=== PATIENT | female | born 1955 | race Caucasian/White ===

== ENCOUNTER → 2024-08-25 | Outpatient (CLI) | payer MEDICARE, BC, SELFPAY ==
[2024-08-25 12:48] LABS: Collection Type, Urine Clean Catch
[2024-08-25 13:30] LABS: Basophils # (Auto) 0.1 Thou/mm3 (0.0-0.2); Basophils % (Auto) 2 % (0-2.5); Eosinophils # (Auto) 0.4 Thou/mm3 (0.0-0.5); Eosinophils % (Auto) 6 % (0-10); Hematocrit 35.4 % (36.0-46.0); Immature Granulocytes % (Auto) 0 % (0-0); Immature Granulocytes Auto 0.01 Thou/mm3 (0.00-0.00); Lymphocytes % (Auto) 35 % (10-50); Mean Corpuscular HGB Conc 31.1 g/dl (31.0-37.0); Mean Corpuscular Hemoglobin 27.8 pg (25.0-35.0); Mean Corpuscular Volume 89 fL (80-100); Monocytes # (Auto) 0.6 Thou/mm3 (0.0-0.8); Monocytes % (Auto) 11 % (0-12); Neutrophils # (Auto) 2.7 Thou/mm3 (1.8-7.7); Neutrophils % (Auto) 46 % (37-80); Nucleated Red Blood Cell % 0 /100 WBC (0); Platelet Count 189 Thou/mm3 (140-440); RDW Standard Deviation 47.4 fL (36.4-46.3); Red Blood Count 3.96 Miln/mm3 (4.00-5.20); White Blood Count 5.8 Thou/mm3 (3.6-11.0)
[2024-08-25 13:33] LABS: Bilirubin,Urine Negative (Negative); Blood,Urine Negative (Negative); Clarity,Urine Clear (Clear/Hazy); Color,Urine Lt-Yellow (Lt Yel-Yel); Glucose, Urine Negative (Negative); Hyaline Casts,Urine < 1 /hpf (0-1); Ketones,Urine Negative (Negative); Leukocyte Esterase,Urine Positive (Negative); Nitrite,Urine Negative (Negative); Protein,Urine Negative (Neg - Trace); RBC,Urine 2 /hpf (0-3); Specific Gravity,Urine 1.029 (1.001-1.035); Squamous Epithelial Cell,Urine 3 /hpf (0-5); Urobilinogen,Urine Negative mg/dL (0.0-1.0); WBC,Urine 19 /hpf (0-5)
[2024-08-25 13:44] LABS: Alanine Aminotransferase 30 U/L (10-49); Albumin, Serum 4.5 gm/dL (3.4-4.8); Alkaline Phosphatase 76 U/L (46-116); Anion Gap 8 (7-16); Aspartate Amino Transferase 27 U/L (0-34); BUN/Creatinine Ratio 14 Ratio (12-20); Bilirubin,Total 0.4 mg/dL (0.3-1.2); Blood Urea Nitrogen 14 mg/dL (9-23); Calcium 9.5 mg/dL (8.3-10.6); Calcium (Corrected) 9.5 mg/dL (8.5-10.1); Carbon Dioxide 27.5 mMol/L (20.0-31.0); Cardiac Risk Estimate 2.2 RATIO (3.7-5.6); Chloride 107 mMol/L (98-107); Cholesterol 153 mg/dL (132-200); Globulin 2.3 gm/dL (2.3-3.5); Glucose 100 mg/dL (74-106); HDL Cholesterol 71 mg/dL (40-60); LDL Cholesterol,Calculated 51 mg/dL (0-130); Osmolality,Calculated 283 (275-295); Sodium 142 mMol/L (136-145); Thyroid Stimulating Hormone 0.79 uIU/mL (0.55-4.78); Total Protein 6.8 gm/dL (5.7-8.2); Triglycerides 156 mg/dL (30-150); eGFR > 60 See Note
== END | disposition home or self-care (01) ==
PROVIDERS: PCP Internal Medicine; Referring Provider Internal Medicine; Visit Provider Internal Medicine
DX: I10 Essential (primary) hypertension (principal); E78.5 Hyperlipidemia, unspecified; E03.9 Hypothyroidism, unspecified
CPT/HCPCS: 36415; 80053; 80061; 81001; 84443; 85025

== ENCOUNTER → 2024-09-05 | Outpatient (CLI) | payer MEDICARE, BC, SELFPAY ==
--- NOTE | 2024-09-05 16:12 | XR_ITS ---
Examination: PA lateral chest 2 views Technique: Upright PA lateral chest 2 views Exam date and time: September 05, 2024 1821 hrs. Indications: Coughing beginning 2 weeks ago. Findings: Normal heart size Ectatic thoracic aorta. No pneumonia or pulmonary edema Moderate osteopenia Impression: No pneumonia or pulmonary edema
== END | disposition home or self-care (01) ==
LOC: CDIM 16:06
PROVIDERS: Referring Provider Internal Medicine; Visit Provider Internal Medicine
DX: R05.9 Cough, unspecified (principal)
CPT/HCPCS: 71046

== ENCOUNTER → 2024-11-21 | Outpatient (CLI) | payer MEDICARE, BC, SELFPAY ==
--- NOTE | 2024-11-21 10:45 | XR_ITS ---
Examination: Screening digital mammography, bilateral Computer aided detection 3-D breast Tomosynthesis, bilateral Date and time of exam: November 21, 2024 1039 hours Compared to mammograms dating to October 24, 2014 Indication: Screening Technique: Nonmagnified MLO, CC views of the breasts to been obtained, reconstructed from 3-D Tomosynthesis images. R2 computer aided detection program utilized for evaluation of suspicious masses and/or abnormal calcifications. 3-D Tomosynthesis images obtained. Findings: Scattered areas of fibroglandular density. Benign calcifications. Scar formation stable upper outer left breast No interval suspicious masses Impression: BI-RADS category II: Benign Findings. Recommend 1 year follow-up mammogram.
== END | disposition home or self-care (01) ==
LOC: CDIM 10:26
PROVIDERS: Referring Provider Internal Medicine; Visit Provider Internal Medicine
DX: Z12.31 Encounter for screening mammogram for malignant neoplasm of breast (principal); R92.323 Mammographic fibroglandular density, bilateral breasts; R92.1 Mammographic calcification found on diagnostic imaging of breast
CPT/HCPCS: 77063; 77067

== ENCOUNTER → 2024-12-08 | Outpatient (CLI) | payer MEDICARE, BC, SELFPAY ==
--- NOTE | 2024-12-08 13:20 | XR_ITS ---
Examination: Bone densitometry Date and time of exam:December 08, 2024 1352 hours INDICATIONS: Menopause age 48, calcium and vitamin D 5 years Technique: Lumbar spine and hip total bone mineralization values of an calculated. Peak reference and age match control results have been displayed. Findings: Lumbar spine total bone mineralization is0.912 gm/cm2. This is 1.2 standard deviations below peak reference. This is 0.9 standard deviations above age-matched controls. Hip total bone mineralization is 0.795 gm/cm2 This is 1.2 standard deviations below peak reference. This is 0.4 standard deviations above age-matched controls Impression: There is osteopenia based on lumbar spine measurements. There is osteopenia based on hip measurements Hip mineralization is decreased 5.5% compared with December 15, 2021
== END | disposition home or self-care (01) ==
PROVIDERS: PCP Internal Medicine; Referring Provider Internal Medicine; Visit Provider Internal Medicine
DX: M85.89 Other specified disorders of bone density and structure, multiple sites (principal)
CPT/HCPCS: 77080

== ENCOUNTER → 2025-01-05 | Outpatient (CLI) | payer MEDICARE, BC, SELFPAY ==
[2025-01-05 12:53] LABS: Collection Type, Urine Clean Catch
[2025-01-05 13:11] LABS: Basophils # (Auto) 0.1 Thou/mm3 (0.0-0.2); Basophils % (Auto) 1 % (0-2.5); Eosinophils # (Auto) 0.4 Thou/mm3 (0.0-0.5); Eosinophils % (Auto) 6 % (0-10); Hematocrit 34.9 % (36.0-46.0); Hemoglobin 11.2 g/dL (12.0-16.0); Immature Granulocytes Auto 0.02 Thou/mm3 (0.00-0.00); Lymphocytes # (Auto) 2.4 Thou/mm3 (1.0-4.8); Lymphocytes % (Auto) 38 % (10-50); Mean Corpuscular HGB Conc 32.1 g/dl (31.0-37.0); Mean Corpuscular Hemoglobin 28.4 pg (25.0-35.0); Mean Corpuscular Volume 88 fL (80-100); Monocytes # (Auto) 0.5 Thou/mm3 (0.0-0.8); Monocytes % (Auto) 8 % (0-12); Neutrophils # (Auto) 2.8 Thou/mm3 (1.8-7.7); Neutrophils % (Auto) 46 % (37-80); Nucleated Red Blood Cell # 0.00 Thou/mm3 (0.00-0.00); Nucleated Red Blood Cell % 0 /100 WBC (0); Platelet Count 204 Thou/mm3 (140-440); RDW Standard Deviation 45.9 fL (36.4-46.3); Red Blood Count 3.95 Miln/mm3 (4.00-5.20); White Blood Count 6.2 Thou/mm3 (3.6-11.0)
[2025-01-05 13:19] LABS: Bilirubin,Urine Negative (Negative); Blood,Urine Negative (Negative); Clarity,Urine Clear (Clear/Hazy); Color,Urine Yellow (Lt Yel-Yel); Glucose, Urine Negative (Negative); Hyaline Casts,Urine 1 /hpf (0-1); Ketones,Urine Negative (Negative); Leukocyte Esterase,Urine Negative (Negative); Nitrite,Urine Negative (Negative); PH,Urine 5.5 (5.0-7.0); Protein,Urine Negative (Neg - Trace); RBC,Urine 2 /hpf (0-3); Specific Gravity,Urine 1.024 (1.001-1.035); Squamous Epithelial Cell,Urine 2 /hpf (0-5); Urobilinogen,Urine Negative mg/dL (0.0-1.0); WBC,Urine 1 /hpf (0-5)
[2025-01-05 14:00] LABS: Alanine Aminotransferase 19 U/L (10-49); Albumin, Serum 4.7 gm/dL (3.4-4.8); Albumin/Globulin Ratio 2.2 (1.2-2.2); Alkaline Phosphatase 51 U/L (46-116); Anion Gap 10 (7-16); Aspartate Amino Transferase 15 U/L (0-34); BUN/Creatinine Ratio 9 Ratio (12-20); Bilirubin,Total 0.3 mg/dL (0.3-1.2); Blood Urea Nitrogen 12 mg/dL (9-23); Calcium 10.0 mg/dL (8.3-10.6); Calcium (Corrected) 10.0 mg/dL (8.5-10.1); Carbon Dioxide 26.4 mMol/L (20.0-31.0); Chloride 102 mMol/L (98-107); Creatinine (Component) 1.3 mg/dL (0.6-1.3); Globulin 2.1 gm/dL (2.3-3.5); Glucose 93 mg/dL (74-106); Osmolality,Calculated 275 (275-295); Potassium 4.9 mMol/L (3.4-5.1); Sodium 138 mMol/L (136-145); Thyroid Stimulating Hormone 1.41 uIU/mL (0.55-4.78); Total Protein 6.8 gm/dL (5.7-8.2); eGFR 44 See Note
[2025-01-05 14:15] LABS: Cardiac Risk Estimate 1.9 RATIO (3.7-5.6); Cholesterol 143 mg/dL (132-200); HDL Cholesterol 75 mg/dL (40-60); LDL Cholesterol,Calculated 35 mg/dL (0-130); Triglycerides 167 mg/dL (30-150)
== END | disposition home or self-care (01) ==
LOC: COPL 11:51
PROVIDERS: PCP Internal Medicine; Referring Provider Internal Medicine; Visit Provider Internal Medicine
DX: E03.9 Hypothyroidism, unspecified (principal); E78.5 Hyperlipidemia, unspecified; I10 Essential (primary) hypertension
CPT/HCPCS: 36415; 80053; 80061; 81001; 84443; 85025

== ENCOUNTER → 2025-05-03 | Outpatient (CLI) | payer MEDICARE, BC, SELFPAY ==
[2025-05-03 11:48] LABS: Albumin, Serum 4.1 gm/dL (3.4-4.8); Anion Gap 8 (7-16); BUN/Creatinine Ratio 15 Ratio (12-20); Blood Urea Nitrogen 9 mg/dL (9-23); Calcium 9.2 mg/dL (8.3-10.6); Calcium (Corrected) 9.2 mg/dL (8.5-10.1); Carbon Dioxide 29.2 mMol/L (20.0-31.0); Chloride 106 mMol/L (98-107); Creatinine (Component) 0.6 mg/dL (0.6-1.3); Glucose 106 mg/dL (74-106); Osmolality,Calculated 283 (275-295); Phosphorous 2.8 mg/dL (2.4-5.1); Potassium 3.8 mMol/L (3.4-5.1); Sodium 143 mMol/L (136-145); eGFR > 60 See Note
== END | disposition home or self-care (01) ==
PROVIDERS: PCP Internal Medicine; Referring Provider Internal Medicine; Visit Provider Internal Medicine
DX: N17.9 Acute kidney failure, unspecified (principal)
CPT/HCPCS: 36415; 80069

== ENCOUNTER 2025-05-07 14:06 | Inpatient (IN) | payer MEDICARE, BC, SELFPAY ==
[2025-05-07] VITALS (8 sets, daily range): BP systolic 138–160; BP diastolic 86–98; PULSE 87–124; RESP 20–28; TEMP 36.6–38.8; O2SAT 92–98; BMI 31.9
--- NOTE | 2025-05-07 14:46 | EKG_ITS ---
[facility] Test Date: 2025-05-07 Pat Name: LEONA HOLT Department: Room: - Gender: Female [employer]: : 1955 Requested By: Clive Britt Order Number: [id number] Reading MD: Clive Britt Measurements Intervals [place] Rate: 122 P: 108 FL: 185 QRS: -34 QRSD: 98 T: 7 QT: 402 QTc: 574 Interpretive Statements SINUS TACHYCARDIA LEFT AXIS DEVIATION [QRS AXIS < -30] POSSIBLE ANTERIOR MYOCARDIAL INFARCTION , OF INDETERMINATE AGE [30 ms Q WAVE IN V3/V4, OR R < 0.2 mV IN V4] Compared to ECG 03/24/2023 09:07:57 Left-axis deviation now present Myocardial infarct finding now present Atrial fibrillation no longer present T-wave abnormality no longer present /store/S0/[id number].pdf
--- NOTE | 2025-05-07 14:51 | EDNOTE_ITS ---
ED General RME/HPI General Chief complaint: Flu Like Symptoms Stated complaint: COUGH, SOB, SORE THROAT X 12 DAYS Time Seen by Provider: 05/07/25 14:40 Arrival date/time: 05/07/25 14:06 CC: Cough and shortness of breath HPI ongoing for the past 10 days with progressive increase in severity. Denies being short of breath when sitting or resting, but when ambulating immediately experiences shortness of breath. Patient was not aware that she has febrile. No OTC medicines taken. Related Data Home Medications ?Medication ?Instructions ?Recorded ?Confirmed benazepril 40 mg tablet (Lotensin) 40 mg PO QDAY #0 ta bs 02/17/17 03/21/23 doxazosin 1 mg tablet (Cardura) 1 mg PO HS ##0 7 03/21/23 dronedarone 400 mg tablet (Multaq) 400 mg PO BID ##0 1 05/20/22 bupropion HCl 150 mg 24 hr tablet, 150 mg PO QDAY 06/0605/20/22 extended release duloxetine 60 mg capsule,delayed 60 mg PO QDAY 1 05/20/22 release propranolol 20 mg tablet 20 mg PO QDAY 06/17/2003/21 simvastatin 20 mg tablet 20 mg PO HS 06/17/20 3 clonidine HCl 0.1 mg tablet 0.1 mg PO HS 07/09/2010/06 dupilumab 300 mg/2 mL subcutaneous 300 mg subcut Q14D 12/20/20 05/21/22 pen injector (Dupixent) levothyroxine 25 mcg tablet 25 mcg PO QDAY 12/20/20 pantoprazole 40 mg tablet,delayed 40 mg PO QDAY 05/20/22 release methocarbamol 750 mg tablet 750 mg PO TID 05/21/2210/06 hydroxyzine HCl 50 mg tablet 50 mg PO HS 03/21/2310/06 Previous Rx's ?Medication ?Instructions ?Recorded benzonatate 100 mg capsule 100 mg PO TID PRN cough #30 caps 04/09/22 furosemide 20 mg tablet 20 mg PO Q OTHER DAY #30 tab s 05/25/22 gabapentin 600 mg tablet 300 mg (1/2 x 600 mg) PO BID #7 03/22/23 tabs Allergies Allergy/AdvReac Type Severity Reaction Status Date / Time fentanyl Allergy Severe Hallucinati Verified 05/07/25 14:11 ng haloperidol (From Haldol) Allergy Severe Hallucinati Verified 05/07/25 14:11 ng ibuprofen Allergy Severe Nose Bleed Verified 05/07/25 14:11 midazolam Allergy Severe Hallucinati Verified 05/07/25 14:11 ng Penicillins Allergy Severe Hives Verified 05/07/25 14:11 Review of Systems Review of Systems Narrative Review of Systems: GEN: No fever, no chills, no weight loss EYES: No discharge, no visual changes, no pain HEENT: No ear pain, no congestion, no sore throat PULM: + shortness of breath, + cough, no congestion CV: No chest pain, no dyspnea on exertion, no palpitations GI: No nausea, no vomiting, no diarrhea, no pain, no constipation : No frequency, no urgency, no dysuria MUSC/SKEL: No joint pain, no back pain SKIN: No rash PSYCH: No hallucinations, no depression HEME/LYMPH: No easy bleeding or bruising tendencies NEURO: No weakness, no headache Past Medical History Past Medical History NEUROLOGIC: Positive Neurological Disorders and Migraine; Negative Seizures CARDIAC: Positive Cardiac Disorders, Cardiac Arrhythmia, Atrial Fibrillation, Hypercholesterolemia, Edema and Hypertension; Negative Congestive Heart Failure RESPIRATORY: Negative Chronic Obstructive Pulmonary Disease (COPD) or Asthma GASTROINTESTINAL: Positive Gastrointestinal Disorders and Gastroesophageal Reflux Disease GENITOURINARY: Negative Renal Disease MUSCULOSKELETAL: Positive Musculoskeletal Disorders, Arthritis and Osteoporosis ENDOCRINE: Positive Endocrine Disorders and Hypothyroidism; Negative Diabetes Mellitus Type 1 or Diabetes Mellitus Type 2 HEMATOLOGIC: Positive Anemia; Negative Sickle Cell Disease PSYCHO/SOCIAL: Positive Psychiatric Problems, Bipolar Disorder, Depression and Post Traumatic Stress Disorder OTHER HISTORY: Positive Hospitalization, Falls, Blood Transfusions and Clostridium Difficile; Negative Blood Transfusion Reaction or Anesthesia Reactions Family History FAMILY HISTORY: Positive Family Cardiac Disorders and Family Cancer Surgical History SURGICAL: Positive Lumpectomy Social History SMOKING STATUS: Never smoker SUBSTANCE USE: does not use ED Exam Narrative Physical exam: [General: Obese in mild discomfort but not in any acute distress Head normocephalic HEENT: Within acceptable limits Neck is supple nontender Chest equal chest rise nontender to palpation Respiratory: Right basilar and expiratory crackles. Otherwise clear to auscultation. CV: Rate rhythm is regular no murmurs rubs or clicks Abdomen is grossly distended secondary to body habitus soft nontender no masses positive bowel sounds all 4 quadrants Back: No CVA tenderness no spinous process tenderness from cervical spine thoracic and lumbar spine Skin: Intact no petechiae rash induration ulceration or crepitus Extremities: Moving all extremity against resistance cap refill less than 2 seconds neurosensory intact Neuro: Awake alert oriented x3 Glascow coma 15 no focal deficits] Course Course Course Narrative: All the laboratory results are unremarkable, the patient's COVID influenza are negative no leukocytosis no significant electrolyte imbalances no renal impairment. TSH free T4 unremarkable. Patient continues to be tachycardic with heart rates as high as 06[birth year]06/1929 after ambulating. Will give the patient additional liter of fluid and see if this mediates the tachycardia. Laboratory results show no acute leukocytosis no acute sepsis, but CTA does show the patient has a left base pneumonia and early UTI. Because of the patient's persistent tachycardia and exertional dyspnea I am feel more comfortable admitting the patient. Discussed the patient with Dr. Oleary was in agreement with this plan. Patient is in agreement with this plan. Quality Measures none Orders Category Date Time Status Admit to Inpatient Status Routine Admission 05/07/25 22:28 Active Bedside COVID-19 Antigen Test NOW Care 05/07/25 14:43 Active Bedside COVID-19 Antigen Test NOW Care 05/07/25 14:50 Active Bedside Influenza A&B Antigen Test NOW Care 05/07/25 14:43 Completed Bedside Influenza A&B Antigen Test NOW Care 05/07/25 14:[address] Screening NOW Care 05/07/25 18:15 Active Telephone Lineworker STAT Care 05/07/25 14:46 Active Continuous Pulse Oximetry STAT Care 05/07/25 14:46 Completed EKG (ED ONLY) *Do not use* NOW Care 05/07/25 14:46 Completed Insert IV NOW Care 05/07/25 14:46 Active NPO STAT Care 05/07/25 14:46 Active Strict Intake and Output Routine Care 05/07/25 14:[address] angio chest Stat Exams 05/07/25 18:15 Completed EKG (ED Only) Stat Exams 05/07/25 14:46 Draft B-Type Natriuretic Peptide Stat Lab 05/07/25 15:37 Completed Blood Culture (Lab) Stat Lab 05/07/25 15:11 Received CBC AM DRAW Lab 05/08/25 05:00 Ordered CBC AM DRAW Lab 05/09/25 05:00 Ordered CBC AM DRAW Lab 05/10/25 05:00 Ordered CBC Stat Lab 05/07/25 15:37 Completed Comprehensive Metabolic Panel Stat Lab 05/07/25 15:11 Completed D-Dimer Stat Lab 05/07/25 15:37 Completed Free T4 (Free Thyroxine) Stat Lab 05/07/25 15:11 Completed LDH (Lactate Dehydrogenase) Stat Lab 05/07/25 15:11 Completed Lactate (Lactic Acid) Stat Lab 05/07/25 14:46 Completed Lipase Stat Lab 05/07/25 15:11 Completed Magnesium AM DRAW Lab 05/08/25 05:00 Ordered Magnesium AM DRAW Lab 05/09/25 05:00 Ordered Magnesium AM DRAW Lab 05/10/25 05:00 Ordered Magnesium Stat Lab 05/07/25 15:11 Completed Partial Thromboplastin Time Stat Lab 05/07/25 15:11 Completed Phosphorous Stat Lab 05/07/25 15:11 Completed Procalcitonin Stat Lab 05/07/25 15:11 Completed Prothrombin Time with INR Stat Lab 05/07/25 15:11 Completed Renal Function Panel AM DRAW Lab 05/08/25 05:00 Ordered Renal Function Panel AM DRAW Lab 05/09/25 05:00 Ordered Renal Function Panel AM DRAW Lab 05/10/25 05:00 Ordered Thyroid Stimulating Hormone AM DRAW Lab 05/08/25 05:00 Ordered Thyroid Stimulating Hormone Stat Lab 05/07/25 15:11 Completed Troponin I Stat Lab 05/07/25 15:11 Completed Troponin I Stat Lab 05/07/25 19:35 Completed Urinalysis, C/S if Indicated Stat Lab 05/07/25 16:31 Completed Urine Culture Stat Lab 05/07/25 16:31 Received Acetaminophen Ivpb [Ofirmev Inj] Med 05/07/25 14:51 Discontinued 1,000 mg in 100 ml IV NOW Acetaminophen Ivpb [Ofirmev Inj] Med 05/07/25 21:01 Discontinued 1,000 mg in 100 ml IV NOW Benzonatate [Tessalon] Med 05/07/25 22:29 Active 100 mg PO TID PRN COU cough BuPROPion HCL XL [Wellbutrin XL] Med 05/08/25 09:00 Active 150 mg PO QDAY DULoxetine HCL [Cymbalta] Med 05/08/25 09:00 Active 60 mg PO QDAY Doxazosin Mesylate [Cardura] Med 05/08/25 21:00 Active 1 mg PO HS Gabapentin [Neurontin] Med 05/08/25 09:00 Active 300 mg PO BID Levothyroxine Sodium [Synthroid] Med 05/08/25 06:00 Active 25 mcg PO ACBR Magnesium Sulfate 2 GM Ivpb [Magnesium Sulfate Ivpb] Med 05/07/25 22:33 Ordered 2 gm in 50 ml IV X1 Morphine* Inj Med 05/07/25 18:25 Discontinued 4 mg IVP X1 ONE Naph,Kph Mbdb [Neutra-Phos Pkt] Med 05/07/25 22:33 Once 1 packet PO X1 ONE Pantoprazole [Protonix] Med 05/08/25 09:00 Active 40 mg PO QDAY Propranolol HCl [Inderal] Med 05/08/25 09:00 Active 20 mg PO QDAY Ringers Lactated 1000 ml [Lactated Ringers] 1,000 ml Med 05/07/25 14:51 Discontinued IV 999 mls/hr Ringers Lactated 1000 ml [Lactated Ringers] 1,000 ml Med 05/07/25 17:27 Discontinued IV 999 mls/hr Sodium Chloride 0.9% 1000 ml [Ns] 1,000 ml Med 05/07/25 21:00 Active IV 85 mls/hr benazepril [Lotensin] Med 05/08/25 09:00 Ordered 40 mg PO QDAY cefTRIAXone/D5w 1gm IV premix [Rocephin/D5w 1gm IV Med 05/08/25 09:00 Ordered premix] 1 gm in 50 ml IV DAILY cefTRIAXone/D5w 1gm IV premix [Rocephin/D5w 1gm IV Med 05/07/25 20:30 Discontinued premix] 1 gm in 50 ml IV X1 cloNIDine HCL [Catapres] Med 05/08/25 21:00 Active 0.1 mg PO HS dronedarone [Multaq] Med 05/07/25 22:45 Ordered 400 mg PO BID Code Status Routine Oth 05/07/25 22:28 Ordered Oxygen Delivery NOW RT 05/07/25 14:46 Active Vital Signs Vital signs: Vital Signs Temperature 101.4 F H 05/07/25 14:44 Pulse Rate 124 H 05/07/25 14:44 Respiratory Rate 20 05/07/25 14:44 Blood Pressure 159/97 H 05/07/25 14:44 Pulse Oximetry (%) 92 L 05/07/25 14:44 Oxygen Delivery Method Room Air 05/07/25 14:44 Discharge Plan Plan Patient Disposition: Other Care w/in Hosp (SDC/OBNI) Patient condition on transfer: Stable Prescriptions/Referrals Prescriptions/Med Rec: No Action Multaq 400 MG tablet 400 mg PO BID Qty: 0 benazepril [Lotensin] 40 MG tablet 40 mg PO QDAY Qty: 0 doxazosin [Cardura] 1 MG tablet 1 mg PO HS Qty: 0 clonidine HCl 0.1 mg tablet 0.1 mg PO HS levothyroxine 25 mcg tablet 25 mcg PO QDAY pantoprazole 40 mg Tablet,Delayed Release (Dr/Ec) 40 mg PO QDAY Dupixent Pen 300 mg/2 mL pen injector 300 mg SUBCUT Q14D simvastatin 20 mg Tablet 20 mg PO HS propranolol 20 mg Tablet 20 mg PO QDAY bupropion HCl 150 mg Tablet Extended Release 24 Hr 150 mg PO QDAY duloxetine 60 mg Capsule,Delayed Release(Dr/Ec) 60 mg PO QDAY benzonatate 100 mg capsule 100 mg PO TID PRN (Reason: cough) Qty: 30 0RF methocarbamol 750 mg Tablet 750 mg PO TID furosemide 20 mg tablet 20 mg PO Q OTHER DAY Qty: 30 0RF hydroxyzine HCl 50 mg tablet 50 mg PO HS gabapentin 600 mg Tablet 300 mg PO BID Qty: 7 0RF Referrals: No Primary/Family,Physician [Referring Provider] - In 1 week Problem List Clinical Impression: Pneumonia, UTI (urinary tract infection), Tachycardia Patient/Caregiver Discharge Instructions Print Language: Sami Stand Alone Forms: Lina Award Info., Patient Portal Info Letter PA/FELLING BUCKING SUPERVISOR Supervising Physician PA/FELLING BUCKING SUPERVISOR Supervising Physician: Clive Pacheco ENP [facility] Clinical Information Provided by: patient Medical Records reviewed [facility] Meds/Rx considered, not ordered None Labs/Rad/Tests considered, not ordered None Chronic Illness/Social Conditions Explain: History of A-fib hypertension GERD hypothyroidism anemia bipolar disorder and PTSD. Labs Labs: interpreted by mo Lab(s) Interpretation(s): CBC shows no leukocytosis H&H of 11.0 and 33.7 respectively. Platelets at 144. Coags within acceptable limits CMP shows no significant electrolyte imbalances renal impairment transaminitis or T. bili elevation Lactic is 1.1 LDH at 254 Troponin is unremarkable BNP is 193 Lipase is 30. Pro-Riley is 0.23. Imaging Imaging interpretation: interpreted by me Imaging Interpretation(s): Chest x-ray performed outpatient 40 minutes ago was negative for any acute finding. Medication Administration(s) Medication Administration History Benzonatate (Benzonatate 100 Mg Capsule) 100 mg PO TID PRN; Protocol PRN Reason: COUGH Stop: 06/06/25 22:28 Bupropion HCl (Bupropion Hcl Xl 150 Mg Tabcr) 150 mg PO QDAY VAISHALI Stop: 06/07/25 08:59 Clonidine (Clonidine Hcl 0.1 Mg Tablet) 0.1 mg PO HS VAISHALI Stop: 06/07/25 20:59 Doxazosin Mesylate (Doxazosin Mesylate 1 Mg Tablet) 1 mg PO HS VAISHALI Stop: 06/07/25 20:59 Duloxetine HCl (Duloxetine Hcl 30 Mg Capsule) 60 mg PO QDAY VAISHALI Stop: 06/07/25 08:59 Gabapentin (Gabapentin 300 Mg Capsule) 300 mg PO BID VAISHALI Stop: 06/07/25 08:59 Sodium Chloride (Ns) 1,000 mls @ 85 mls/hr IV .[id number] VAISHALI Stop: 06/06/25 20:59 Last Admin: 05/07/25 21:50 Dose: 85 mls/hr Documented By: EB Magnesium Sulfate (Magnesium Sulfate Ivpb) 2 gm in 50 mls @ 25 mls/hr IV X1 ONE Stop: 05/08/25 00:32 Ceftriaxone Sodium/Dextrose (Rocephin/D5w 1gm Iv Premix) 1 gm in 50 mls @ 100 mls/hr IV DAILY VAISHALI Stop: 05/15/25 08:59 Levothyroxine Sodium (Levothyroxine Sodium 25 Mcg Tablet) 25 mcg PO ACBR VAISHALI Stop: 06/07/25 05:59 Non-Formulary Medication (Benazepril [Lotensin]) 40 mg PO QDAY VAISHALI Stop: 06/07/25 08:59 Non-Formulary Medication (Dronedarone [Multaq]) 400 mg PO BID VAISHALI Stop: 06/06/25 22:44 Pantoprazole Sodium (Pantoprazole 40 Mg Tablet) 40 mg PO QDAY VAISHALI Stop: 06/07/25 08:59 Potassium Phos/Sodium Phos (Naph,[facility] Mbdb 1 Packet (1.5 Gm)) 1 packet PO X1 ONE Stop: 05/07/25 22:34 Propranolol HCl (Propranolol 10 Mg Tablet) 20 mg PO QDAY [facility] Stop: 06/07/25 08:59 Discontinued Medications Acetaminophen (Ofirmev Inj) 1,000 mg in 100 mls @ 250 mls/hr IV NOW ONE Stop: 05/07/25 15:14 Last Infusion: 05/07/25 16:17 Dose: Infused Documented By: Admin: 05/07/25 15:53 Dose: 250 mls/hr Documented By: DO Lactated Ringer's (Lactated Ringers) 1,000 mls @ 999 mls/hr IV .Q1H1M ONE Stop: 05/07/25 15:51 Last Infusion: 05/07/25 16:52 Dose: Infused Documented By: Admin: 05/07/25 15:51 Dose: 999 mls/hr Documented By: DO Lactated Ringer's (Lactated Ringers) 1,000 mls @ 999 mls/hr IV .Q1H1M ONE Stop: 05/07/25 18:27 Last Infusion: 05/07/25 18:45 Dose: Infused Documented By: Admin: 05/07/25 17:45 Dose: 999 mls/hr Documented By: VG Ceftriaxone Sodium/Dextrose (Rocephin/D5w 1gm Iv Premix) 1 gm in 50 mls @ 100 mls/hr IV X1 ONE; Protocol Stop: 05/07/25 20:59 Last Infusion: 05/07/25 21:42 Dose: Infused Documented By: Admin: 05/07/25 20:40 Dose: 100 mls/hr Documented By: EB Acetaminophen (Ofirmev Inj) 1,000 mg in 100 mls @ 250 mls/hr IV NOW ONE Stop: 05/07/25 21:24 Last Infusion: 05/07/25 22:33 Dose: Infused Documented By: Admin: 05/07/25 21:51 Dose: 250 mls/hr Documented By: EB Morphine Sulfate (Morphine Sulf Inj 4 Mg/Ml Vial) 4 mg IVP X1 ONE Stop: 05/07/25 18:26 Last Admin: 05/07/25 18:42 Dose: 4 mg Documented By: DO
[2025-05-07 15:22] LABS: Lactate (Lactic Acid) 1.1 mMol/L (0.4-2.0)
[2025-05-07 15:43] LABS: INR 1.1 (0.9-1.3); Partial Thromboplastin Time 23.0 Seconds (22.0-36.0); Prothrombin Time 11.9 Seconds (9.0-12.2)
[2025-05-07] MEDS: RINGERS LACTATED 1000 ML 1,000 ML 999 ML IV ×2 (15:51→17:45)
[2025-05-07 15:53] LABS: Alanine Aminotransferase 31 U/L (10-49); Albumin, Serum 4.8 gm/dL (3.4-4.8); Albumin/Globulin Ratio 2.3 (1.2-2.2); Alkaline Phosphatase 64 U/L (46-116); Anion Gap 10 (7-16); Aspartate Amino Transferase 31 U/L (0-34); BUN/Creatinine Ratio 10 Ratio (12-20); Bilirubin,Total 0.5 mg/dL (0.3-1.2); Blood Urea Nitrogen 8 mg/dL (9-23); Calcium 9.0 mg/dL (8.3-10.6); Calcium (Corrected) 9.0 mg/dL (8.5-10.1); Carbon Dioxide 22.7 mMol/L (20.0-31.0); Chloride 103 mMol/L (98-107); Creatinine (Component) 0.8 mg/dL (0.6-1.3); Estimated Creatinine Clearance 70.3 mL/min (>60); Globulin 2.1 gm/dL (2.3-3.5); Glucose 106 mg/dL (74-106); LDH (Lactate Dehydrogenase) 254 U/L (120-246); Lipase 30 U/L (12-53); Magnesium 1.6 mg/dL (1.6-2.6); Osmolality,Calculated 270 (275-295); Phosphorous 2.2 mg/dL (2.4-5.1); Potassium 4.4 mMol/L (3.4-5.1); Procalcitonin 0.23 ng/ml (0.0-0.49); Sodium 136 mMol/L (136-145); Total Protein 6.9 gm/dL (5.7-8.2); Troponin I < 0.002 ng/mL (0.0-0.045); eGFR > 60 See Note
[2025-05-07] MEDS: ACETAMINOPHEN IVPB 1,000 MG/100 ML VIAL 250 MG IV ×2 (15:53→21:51)
[2025-05-07 15:57] LABS: Basophils # (Auto) 0.0 Thou/mm3 (0.0-0.2); Basophils % (Auto) 0 % (0-2.5); Eosinophils # (Auto) 0.1 Thou/mm3 (0.0-0.5); Eosinophils % (Auto) 1 % (0-10); Hematocrit 33.7 % (36.0-46.0); Hemoglobin 11.0 g/dL (12.0-16.0); Immature Granulocytes Auto 0.03 Thou/mm3 (0.00-0.00); Lymphocytes # (Auto) 0.8 Thou/mm3 (1.0-4.8); Lymphocytes % (Auto) 10 % (10-50); Mean Corpuscular HGB Conc 32.6 g/dl (31.0-37.0); Mean Corpuscular Hemoglobin 28.4 pg (25.0-35.0); Mean Corpuscular Volume 87 fL (80-100); Monocytes # (Auto) 0.5 Thou/mm3 (0.0-0.8); Monocytes % (Auto) 6 % (0-12); Neutrophils # (Auto) 6.9 Thou/mm3 (1.8-7.7); Neutrophils % (Auto) 83 % (37-80); Nucleated Red Blood Cell # 0.00 Thou/mm3 (0.00-0.00); Nucleated Red Blood Cell % 0 /100 WBC (0); Platelet Count 144 Thou/mm3 (140-440); RDW Standard Deviation 47.6 fL (36.4-46.3); Red Blood Count 3.88 Miln/mm3 (4.00-5.20); White Blood Count 8.3 Thou/mm3 (3.6-11.0)
[2025-05-07 16:16] LABS: B-Type Natriuretic Peptide 193 pg/mL (0-100)
[2025-05-07 16:56] LABS: Collection Type, Urine Clean Catch
[2025-05-07 17:10] LABS: Bilirubin,Urine Negative (Negative); Blood,Urine Trace (Negative); Color,Urine Yellow (Lt Yel-Yel); Glucose, Urine Negative (Negative); Ketones,Urine 1+ (Negative); Leukocyte Esterase,Urine Positive (Negative); Nitrite,Urine Positive (Negative); PH,Urine 6.0 (5.0-7.0); Protein,Urine Negative (Neg - Trace); RBC,Urine 3 /hpf (0-3); Specific Gravity,Urine 1.019 (1.001-1.035); Squamous Epithelial Cell,Urine 1 /hpf (0-5); Urobilinogen,Urine Negative mg/dL (0.0-1.0); WBC,Urine 117 /hpf (0-5)
[2025-05-07 17:14] LABS: Clarity,Urine Hazy (Clear/Hazy); Culture Indicated,Urine Yes
[2025-05-07 17:19] LABS: Free T4 (Free Thyroxine) 1.60 ng/dL (0.89-1.76); Thyroid Stimulating Hormone 0.14 uIU/mL (0.55-4.78)
--- NOTE | 2025-05-07 18:15 | XR_ITS ---
Examination: CTA chest with intravenous contrast 2-D reconstructions 3-D reconstructions, vascular Date and time of exam: May 07, 2025, 1925 hours INDICATIONS: Chest pain shortness of breath today CTDI: vol (mGy) 14.8 DLP: (mGycm) 461 Technique: Multiple axial sections of the thorax have been obtained. 3 mm slice thickness, from below the hemidiaphragms to above the apices of the lungs. Mediastinal and lung density settings have been obtained. 2-D sagittal and coronal reconstructions. 3-D angiographic renderings, 3-D volume renderings, 3D post processing, vascular maximum intensity projections obtained. Contrast administered is 100 cc Isovue-370. Low dose protocols were performed. One or more of the following dose reduction techniques were used; automated exposure control, adjustment of the mA and/or KV according to patient size, use of iterative reconstruction technique. Findings: No thoracic aortic aneurysm dilatation or dissection No pulmonary artery emboli Mild vascular congestion Mild enlargement cardiac contour Pneumonia left base No visualized liver or splenic lesion Axial image 163 suspicious for tiny gallstones Common bile duct enlarged, 11 mm No hydronephrosis Abdominal aorta intact Moderate osteopenia IMPRESSION: Negative for pulmonary artery emboli Left base pneumonia Recommend hepatobiliary sonography to confirm small gallstones
[2025-05-07] MEDS: MORPHINE SULF INJ 4 MG/ML VIAL IVP (18:42)
[2025-05-07 18:52] LABS: D-Dimer < 250 ng/mL (<600)
--- NOTE | 2025-05-07 19:18 | PC.NURSE ---
KANDI from Evelyn RN, Pt in CT at this time Spouse waiting in room
[2025-05-07 20:11] LABS: Troponin I < 0.020 ng/mL (0.0-0.045)
--- NOTE | 2025-05-07 20:29 | PC.NURSE ---
requested Pt to provide urine Pt re[ported he is trying to go and cannot. when assessed Pt was distended and tender made aware will start kahn cath
[2025-05-07] MEDS: cefTRIAXone/D5w 1gm IV premix 1 GM/50 ML BAG IV (20:40)
[2025-05-07] MEDS: SODIUM CHLORIDE 0.9% 1000 ML 1,000 ML 85 ML IV (21:50)
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
[2025-05-07] MEDS: Magnesium Sulfate 2 GM Ivpb 2 GM/50 ML BAG IV (22:54)
--- NOTE | 2025-05-07 23:56 | PC.NURSE ---
Pt has platelet level of 61 per protocol hold heparin if platelet <100 platelet
[2025-05-08] VITALS (13 sets, daily range): BP systolic 139–157; BP diastolic 80–99; PULSE 56–94; RESP 18–28; TEMP 36–37.1; O2SAT 91–99; BMI 31.4
--- NOTE | 2025-05-08 00:10 | PC.NURSE ---
SBAR to Colette RN Pt going to floor with RN
[2025-05-08] MEDS: NAPH,KPH MBDB 1 PACKET (1.5 GM) PO (00:56)
--- NOTE | 2025-05-08 01:38 | PC.NURSE ---
accessed patient's chart for main nurse.
[2025-05-08 06:22] LABS: Basophils # (Auto) 0.0 Thou/mm3 (0.0-0.2); Basophils % (Auto) 1 % (0-2.5); Eosinophils # (Auto) 0.0 Thou/mm3 (0.0-0.5); Eosinophils % (Auto) 0 % (0-10); Hematocrit 32.5 % (36.0-46.0); Hemoglobin 10.8 g/dL (12.0-16.0); Immature Granulocytes Auto 0.02 Thou/mm3 (0.00-0.00); Lymphocytes # (Auto) 0.9 Thou/mm3 (1.0-4.8); Lymphocytes % (Auto) 12 % (10-50); Mean Corpuscular HGB Conc 33.2 g/dl (31.0-37.0); Mean Corpuscular Hemoglobin 29.0 pg (25.0-35.0); Mean Corpuscular Volume 87 fL (80-100); Monocytes # (Auto) 0.4 Thou/mm3 (0.0-0.8); Monocytes % (Auto) 5 % (0-12); Neutrophils # (Auto) 6.6 Thou/mm3 (1.8-7.7); Neutrophils % (Auto) 83 % (37-80); Nucleated Red Blood Cell # 0.00 Thou/mm3 (0.00-0.00); Nucleated Red Blood Cell % 0 /100 WBC (0); Platelet Count 131 Thou/mm3 (140-440); RDW Standard Deviation 48.2 fL (36.4-46.3); Red Blood Count 3.73 Miln/mm3 (4.00-5.20); White Blood Count 8.0 Thou/mm3 (3.6-11.0)
[2025-05-08] MEDS: LEVOTHYROXINE SODIUM 25 MCG TABLET PO (06:30)
[2025-05-08 06:43] LABS: Albumin, Serum 4.1 gm/dL (3.4-4.8); Anion Gap 12 (7-16); BUN/Creatinine Ratio 8 Ratio (12-20); Blood Urea Nitrogen < 5 mg/dL (9-23); Calcium 8.9 mg/dL (8.3-10.6); Calcium (Corrected) 8.9 mg/dL (8.5-10.1); Carbon Dioxide 25.1 mMol/L (20.0-31.0); Chloride 105 mMol/L (98-107); Creatinine (Component) 0.6 mg/dL (0.6-1.3); Estimated Creatinine Clearance 93.0 mL/min (>60); Glucose 107 mg/dL (74-106); Magnesium 1.9 mg/dL (1.6-2.6); Osmolality,Calculated 280 (275-295); Phosphorous 3.4 mg/dL (2.4-5.1); Potassium 3.7 mMol/L (3.4-5.1); Sodium 142 mMol/L (136-145); Thyroid Stimulating Hormone 0.09 uIU/mL (0.55-4.78); eGFR > 60 See Note
[2025-05-08] MEDS: GABAPENTIN 300 MG CAPSULE PO (08:52)
[2025-05-08] MEDS: PANTOPRAZOLE 40 MG TABLET PO (08:52)
[2025-05-08] MEDS: BENZONATATE 100 MG CAPSULE PO (08:52)
[2025-05-08] MEDS: BuPROPion HCL XL 150 MG TABCR PO (08:52)
[2025-05-08] MEDS: PROPRANOLOL 10 MG TABLET 20 MG PO (08:53)
[2025-05-08] MEDS: DULoxetine HCL 30 MG CAPSULE 60 MG PO (08:54)
[2025-05-08] MEDS: SODIUM CHLORIDE 0.9% 1000 ML 1,000 ML 85 ML IV (08:55)
--- NOTE | 2025-05-08 09:09 | PD.NEPHPROG ---
Documentation for date of: 05/08/25 Subjective Subjective Interval history: Ms. Perez is a 69-year-old lady with past medical history significant for migraine, A-fib, hypercholesterolemia, hypertension, hypothyroidism, GERD, anemia,PTSD and bipolar disorder/depression, chronic diarrhea, chronic pain syndrome-under pain management, asthma, eczema who presents to the ED with complaint of shortness of breath and not feeling well for the last 10 days. She was seen by me in the office this afternoon. I ordered a chest x-ray however patient's noticed that she has been declining and brought her to the emergency department instead. In the ED workup showed she was noted to be with hypoxic respiratory failure. CT chest showed pneumonia. Was started on antibiotics and admitted to the floor Home medications included Lotensin, bupropion, clonidine, Lomotil, Cardura, duloxetine, Dupixent, Lasix, [place], hydroxyzine, levothyroxine, methocarbamol, loperamide, Multaq, Protonix, pregabalin, propranolol, Xarelto, simvastatin Hemoglobin 10.8, WBC 8, platelets 131. Renal panel normal, TSH 0.09 05/08/2025 her home medications were reconciled. Multaq held due to QTc prolongation. Tachycardia seems to be tad better. Still having significant cough. On antibiotics and cough syrup. Labs and medications reviewed Review of Systems Review of Systems Narrative Review of Systems: CONSTITUTIONAL: Patient complaining of fever, chills. Complaining of fatigue HEENT: Denies any visual disturbances or hearing problems. CARDIOVASCULAR: Patient denies any chest pain, swelling in the lower extremities. PULMONARY: Patient c/o shortness of breath, cough. GASTROINTESTINAL: Patient denies any abdominal pain, constipation, nausea, vomiting, diarrhea. GENITOURINARY: Patient denies any urinary symptoms of burning or frequency or hematuria, denies any form in the urine. SKIN: Denies any rash. MUSCULOSKELETAL: Complaining of back pain, joint pains NEUROLOGICAL: Denies any neurological problems of strokes, seizures or confusion. Denies any memory problems. PSYCHIATRIC: Patient admits depression anxiety Exam Vital Signs Temp Pulse Resp BP Pulse Ox O2 Del Method O2 Flow Rate 36.7 C 56 L 20 157/92 H 99 Nasal Cannula 2 05/08/25 16:00 05/08/25 20:41 05/08/25 20:41 05/08/25 20:19 05/08/25 20:41 05/08/25 16:00 05/08/25 20:41 Narrative Exam Patient currently seen in medical floor Uncomfortable from the cough CARDIOVASCULAR: Heart regular, no murmurs, tachycardia LUNGS/CHEST: Bilateral rhonchi and wheezing noted ABDOMEN: Soft, nontender, nondistended. No masses. Normal bowel sounds. EXTREMITIES: No edema, clubbing or cyanosis. SKIN: No rash MUSCULOSKELETAL: In bed Neurological: Patient alert and awake, Objective Labs 05/08/25 04:42 05/08/25 04:42 Labs: Laboratory Results - last 24 hr 05/08/25 04:42 WBC 8.0 RBC 3.73 L Hgb 10.8 L Hct 32.5 L MCV 87 MCH 29.0 MCHC 33.2 RDW Std Deviation 48.2 H Plt Count 131 L Neut % (Auto) 83 H Lymph % (Auto) 12 [place] % (Auto) 5 Eos % (Auto) 0 Baso % (Auto) 1 Neut # (Auto) 6.6 Lymph # (Auto) 0.9 L [place] # (Auto) 0.4 Eos # (Auto) 0.0 Baso # (Auto) 0.0 Immature Gran # (Auto) 0.02 H Absolute Nucleated RBC 0.00 Immature Gran % 0 Nucleated RBC % 0 Sodium 142 Potassium 3.7 D Chloride 105 Carbon Dioxide 25.1 Anion Gap 12 BUN < 5 L Creatinine 0.6 Estim Creat Clear Calc 93.0 eGFR > 60 BUN/Creatinine Ratio 8 L Glucose 107 H Calculated Osmolality 280 Calcium 8.9 Corrected Calcium 8.9 Phosphorus 3.4 Magnesium 1.9 Albumin 4.1 D TSH 0.09 L* Assessment & Plan Assessment and plan (1) Pneumonia: Status: Acute (2) Tachycardia: Status: Acute (3) Atrial fibrillation: Status: Acute (4) Hypertension: Status: Acute (5) UTI (urinary tract infection): Status: Acute (6) Chronic pain: Status: Acute (7) Hyperlipidemia: Status: Acute Additional Assessment & Plan Additional Plan: Patient is a 69 year old female with past medical history significant for migraines, atrial fibrillation, hypercholesterolemia, HTN, hypothyroidism, GERD, anemia, PTSD and bipolar disorder who presents to the ED with complaint of shortness of breath and fever/chills. Diagnosed with pneumonia and UTI # Pneumonia//asthma//hypoxic respiratory failure Antibiotics, gentle IV fluids pending cultures, oxygen Breathing treatments #Atrial fibrillation//tachycardia Due to prolonged QTc-hold dronedarone Resume Xarelto #History of depression and PTSD Resume duloxetine, hydroxyzine #History of hypertension Resume home blood pressure medications #Hypercholesterolemia Atorvastatin 10 daily #History of GERD EGD from 05/28/2022 shows GERD with esophagitis, gastritis and rhinitis without bleeding We will continue with Protonix 40 daily #Hypothyroidism dc levothyroxine 25 daily TSH suppressed #Normocytic anemia Patient has hemoglobin of 10.8, has past medical history of chronic anemia #Chronic back pain resume low-dose Lyrica, methocarbamol, [place] as needed
--- NOTE | 2025-05-08 19:46 | EKG_ITS ---
[facility] Test Date: 2025-05-08 Pat Name: LEONA HOLT Department: Room: 64A Gender: Female [employer]: GINGER : 1955 Requested By: Nayeli Oleary Order Number: [id number] Reading MD: Nayeli Oleary Measurements Intervals [place] Rate: 60 P: 67 ME: 150 QRS: -1 QRSD: 97 T: -9 QT: 466 QTc: 468 Interpretive Statements SINUS RHYTHM LOW QRS VOLTAGE IN PRECORDIAL LEADS NONSPECIFIC ST & T-WAVE ABNORMALITY Compared to ECG 05/07/2025 14:56:39 Low QRS voltage now present T-wave abnormality now present Sinus tachycardia no longer present Left-axis deviation no longer present Myocardial infarct finding no longer present /store/S0/[id number]/ecg/[id number].pdf
[2025-05-08] MEDS: cefTRIAXone/D5w 1gm IV premix 1 GM/50 ML BAG IV (20:15)
[2025-05-08] MEDS: PREGABALIN 50 MG CAPSULE 100 MG PO (20:17)
[2025-05-08] MEDS: DOXAZOSIN MESYLATE 1 MG TABLET PO (20:19)
[2025-05-08] MEDS: ALBUTEROL/IPRATROPIUM (Duoneb) RT SOL 3 ML NEBU INH (20:38)
[2025-05-09] VITALS: BP 137/71; PULSE 64; PULSE 67; RESP 20; TEMP 36.3; O2SAT 96
[2025-05-09 04:00] VITALS: BP 147/83; PULSE 69; PULSE 75; RESP 18; TEMP 36.6; O2SAT 95
[2025-05-09 05:32] LABS: Basophils # (Auto) 0.0 Thou/mm3 (0.0-0.2); Basophils % (Auto) 0 % (0-2.5); Eosinophils # (Auto) 0.2 Thou/mm3 (0.0-0.5); Eosinophils % (Auto) 3 % (0-10); Hematocrit 30.9 % (36.0-46.0); Hemoglobin 10.0 g/dL (12.0-16.0); Immature Granulocytes Auto 0.02 Thou/mm3 (0.00-0.00); Lymphocytes # (Auto) 1.0 Thou/mm3 (1.0-4.8); Lymphocytes % (Auto) 18 % (10-50); Mean Corpuscular HGB Conc 32.4 g/dl (31.0-37.0); Mean Corpuscular Hemoglobin 28.5 pg (25.0-35.0); Mean Corpuscular Volume 88 fL (80-100); Monocytes # (Auto) 0.4 Thou/mm3 (0.0-0.8); Monocytes % (Auto) 8 % (0-12); Neutrophils # (Auto) 3.9 Thou/mm3 (1.8-7.7); Neutrophils % (Auto) 70 % (37-80); Nucleated Red Blood Cell # 0.00 Thou/mm3 (0.00-0.00); Nucleated Red Blood Cell % 0 /100 WBC (0); Platelet Count 111 Thou/mm3 (140-440); RDW Standard Deviation 47.7 fL (36.4-46.3); Red Blood Count 3.51 Miln/mm3 (4.00-5.20); White Blood Count 5.6 Thou/mm3 (3.6-11.0)
[2025-05-09] MEDS: BENZONATATE 100 MG CAPSULE PO (05:39)
[2025-05-09 06:04] LABS: Albumin, Serum 3.9 gm/dL (3.4-4.8); Anion Gap 11 (7-16); BUN/Creatinine Ratio 14 Ratio (12-20); Blood Urea Nitrogen 7 mg/dL (9-23); Calcium 8.8 mg/dL (8.3-10.6); Calcium (Corrected) 8.9 mg/dL (8.5-10.1); Carbon Dioxide 26.7 mMol/L (20.0-31.0); Chloride 105 mMol/L (98-107); Creatinine (Component) 0.5 mg/dL (0.6-1.3); Estimated Creatinine Clearance 111.6 mL/min (>60); Glucose 109 mg/dL (74-106); Magnesium 1.8 mg/dL (1.6-2.6); Osmolality,Calculated 283 (275-295); Phosphorous 3.4 mg/dL (2.4-5.1); Potassium 3.3 mMol/L (3.4-5.1); Sodium 143 mMol/L (136-145); eGFR > 60 See Note
[2025-05-09 08:00] VITALS: PULSE 60
[2025-05-09 08:07] VITALS: BP 166/83; PULSE 60; RESP 17; TEMP 36.6; O2SAT 97
[2025-05-09 08:09] VITALS: BP 166/83; PULSE 60
[2025-05-09] MEDS: PANTOPRAZOLE 40 MG TABLET PO (08:09)
[2025-05-09] MEDS: DULoxetine HCL 30 MG CAPSULE 60 MG PO (08:09)
[2025-05-09 08:10] VITALS: BP 166/83; PULSE 60
[2025-05-09] MEDS: PROPRANOLOL 10 MG TABLET 20 MG PO (08:10)
[2025-05-09] MEDS: DRONEDARONE (MULTAQ) 400MG TABLET PO (08:11)
--- NOTE | 2025-05-09 10:08 | ESDS_ITS ---
Planned Discharge Date 05/09/25 DS: Providers Provider Date of admission: 05/07/25 22:28 Primary care physician: Nayeli Huffman MD Admitting Provider: Nayeli Huffman MD Attending Provider on Admission: Nayeli Huffman MD Attending Provider on DC: Nayeli Huffman MD Discharging Provider: Nayeli Huffman MD Discharge Diagnosis Discharge Diagnosis (1) Pneumonia: Status: Acute Assessment & Plan: Dc on po abx (2) Tachycardia: Status: Acute Assessment & Plan: better (3) Atrial fibrillation: Status: Acute Assessment & Plan: continue multag, xarelto (4) Hypertension: Status: Acute Assessment & Plan: Better (5) UTI (urinary tract infection): Status: Acute Assessment & Plan: Gave cefuroxime (6) Chronic pain: Status: Acute Assessment & Plan: under pain mgmt (7) Hyperlipidemia: Status: Acute Assessment & Plan: on statin Problem List Completed Was Problem List Reviewed/Reconciled?: Yes Hospital Course Hospital Course Hospital course: Ms. Perez is a 69-year-old lady with past medical history significant for migraine, A-fib, hypercholesterolemia, hypertension, hypothyroidism, GERD, anemia,PTSD and bipolar disorder/depression, chronic diarrhea, chronic pain syndrome-under pain management, asthma, eczema who presents to the ED with complaint of shortness of breath and not feeling well for the last 10 days. She was seen by me in the office this afternoon. I ordered a chest x-ray however patient's noticed that she has been declining and brought her to the emergency department instead. In the ED workup showed she was noted to be with hypoxic respiratory failure. CT chest showed pneumonia. Was started on antibiotics and admitted to the floor Home medications included Lotensin, bupropion, clonidine, Lomotil, Cardura, duloxetine, Dupixent, Lasix, [place], hydroxyzine, levothyroxine, methocarbamol, loperamide, Multaq, Protonix, pregabalin, propranolol, Xarelto, simvastatin Hemoglobin 10.8, WBC 8, platelets 131. Renal panel normal, TSH 0.09 05/08/2025 her home medications were reconciled. Multaq held due to QTc prolongation. Tachycardia seems to be tad better. Still having significant cough. On antibiotics and cough syrup. Labs and medications reviewed 05/09/2025 patient comfortable. Denies any chest pain, shortness of breath. Denies any nausea, vomiting. Her cough is much better. Anxious to go home Dc on po abx, cough syrup, inhaler Status at Discharge Cognitive/behavioral status at discharge: stable Functional status at discharge: independent ambulation Overall status at discharge: patient is back to baseline Time Spent with Patient Time attestation: Total time spent providing and/or coordinating discharge services: 35 min Exam Vital Signs Temp Pulse Resp BP Pulse Ox O2 Del Method O2 Flow Rate 36.6 C 60 17 166/83 H 97 Nasal Cannula 2 05/09/25 08:07 05/09/25 08:10 05/09/25 08:07 05/09/25 08:10 05/09/25 08:07 05/09/25 08:07 05/09/25 08:07 Narrative Exam Patient currently seen in medical floor sitting in chair CARDIOVASCULAR: Heart regular, no murmurs, tachycardia LUNGS/CHEST: Bilateral rhonchi and wheezing noted ABDOMEN: Soft, nontender, nondistended. No masses. Normal bowel sounds. EXTREMITIES: No edema, clubbing or cyanosis. SKIN: No rash MUSCULOSKELETAL: In bed Neurological: Patient alert and awake, Discharge Plan Plan Patient Disposition: HOME (Self Care) Patient condition on transfer: Stable Prescriptions/Referrals Prescriptions/Med Rec: New cefuroxime axetil 500 mg tablet 500 mg PO BID Qty: 20 0RF promethazine-DM 6.25-15 mg/5 mL syrup 5 ml PO Q6H PRN (Reason: cough) Qty: 473 0RF Continued Multaq 400 MG tablet 400 mg PO BID Qty: 0 benazepril [Lotensin] 40 MG tablet 40 mg PO QDAY Qty: 0 doxazosin [Cardura] 1 MG tablet 1 mg PO HS Qty: 0 clonidine HCl 0.1 mg tablet 0.1 mg PO HS Patient Comments: patient states does not take it everyday just when BP is high pantoprazole 40 mg Tablet,Delayed Release (Dr/Ec) 40 mg PO QDAY Dupixent Pen 300 mg/2 mL pen injector 300 mg SUBCUT Q14D simvastatin 20 mg Tablet 20 mg PO HS propranolol 20 mg Tablet 20 mg PO QDAY bupropion HCl 150 mg Tablet Extended Release 24 Hr 150 mg PO QDAY duloxetine 60 mg Capsule,Delayed Release(Dr/Ec) 60 mg PO QDAY benzonatate 100 mg capsule 100 mg PO TID PRN (Reason: cough) Qty: 30 0RF methocarbamol 750 mg Tablet 750 mg PO TID furosemide 20 mg tablet 20 mg PO Q OTHER DAY Qty: 30 0RF hydroxyzine HCl 50 mg tablet 100 mg PO HS pregabalin 100 mg capsule 300 mg PO HS Xarelto 20 mg tablet 20 mg PO HS Vyzulta 0.024 % drops 1 drp OPHTHALMIC (EYE) HS Patient Comments: one drop in each eye hydrocodone-acetaminophen 10-325 mg tablet 1 tab PO Q8H ketoconazole 2 % cream 1 applic TOPICAL QDAY Patient Comments: states supposed to take every day on toe nails but patient forgets. diphenoxylate-atropine 2.5-0.025 mg tablet 1 tab PO QDAY loperamide 2 mg capsule 2 mg PO QDAY Discontinued levothyroxine 25 mcg tablet 12.5 mcg PO QDAY Referrals: Nayeli Huffman MD [Primary Care Provider, Nephrology] Patient/Caregiver Discharge Instructions Discharge Activity: activity as tolerated Education Materials: When You Have Pneumonia Print Language: Chinese Activity Restrictions/Additional Instructions: f/u with dr. huffman in 1-2 weeks Stand Alone Forms: Lina Award Info., Patient Portal Info Letter Discharge Order Discharge Orders: Discharge (Routine); Ordered 05/09/25 Ordered By: Nayeli Huffman
[2025-05-09] MEDS: BuPROPion HCL XL 150 MG TABCR PO (10:22)
--- NOTE | 2025-05-09 12:08 | PC.SS ---
SS met with patient regarding her d/c plan. Pt is alert/oriented. Pt was admitted for R/O Sepsis, Fever, Pneumonia. Pt confirmed demographic and contact information is correct on facesheet. Pt resides with . Pt ambulates independently without assistance or DME. Pt is ok with all ADLs. Patient?s pharmacy of choice is [facility] on [address] Pt named her , Griffin Perez medical decision maker if she is unable. SS provided verbal d/c options for home or SNF. Patient?s choice is to return home upon d/c. Pt states she is not diabetic and is not on dialysis. Pt followed up with PCP on Wednesday. D/C plan: Return home Next of Kin: Griffin Evans, , phone# [phone] PCP: Dr. Oleary Address: Correct on facesheet
== END 2025-05-09 12:00 | disposition home or self-care (01) | DRG 194 ==
LOC: SERX 21:02 → SERHOLD 22:50 → S3NX 05-08 00:21
PROVIDERS: Registered Nurse General Practice; Admitting Provider Internal Medicine; Emergency Provider Family Medicine; PCP Internal Medicine; Visit Provider Internal Medicine
DX: J18.9 Pneumonia, unspecified organism (principal); N39.0 Urinary tract infection, site not specified; K21.9 Gastro-esophageal reflux disease without esophagitis; I48.91 Unspecified atrial fibrillation; G89.4 Chronic pain syndrome; F31.9 Bipolar disorder, unspecified; I10 Essential (primary) hypertension; E03.9 Hypothyroidism, unspecified; Z88.5 Allergy status to narcotic agent; Z88.0 Allergy status to penicillin; Z88.6 Allergy status to analgesic agent; Z79.01 Long term (current) use of anticoagulants; Z79.890 Hormone replacement therapy
CPT/HCPCS: 36415; 71046; 71275; 80053; 80069; 81001; 83605; 83615; 83690; 83735; 83880; 84100; 84145; 84439; 84443; 84484; 85025; 85379; 85610; 85730; 87040; 87077; 87086; 87186; 87502; 87635; 93005; 93225; 94640; 94664; 96361; 96365; 96366; 96375; 99285; A4649; A9270; J0131; J0696; J2270; J3475; J7030; J7120; Q9967

== ENCOUNTER → 2025-05-07 | Outpatient (CLI) | payer MEDICARE, BC, SELFPAY ==
--- NOTE | 2025-05-07 13:34 | XR_ITS ---
PA upright chest film on 05/07/2025 at 1:44 p.m. Comparison study 09/05/2024. CLINICAL INDICATION: Cough for 10 days FINDINGS: Heart size is slightly enlarged but unchanged. Pulmonary vascularity is normal, both lungs and pleural space are clear. There is very mild scoliosis of the mid dorsal spine convexity to the right this is unchanged. IMPRESSION: 1. Mild cardiomegaly is felt to be present 2. Very minimal scoliosis of the dorsal spine convexity to the right 3. Chest film otherwise normal
== END | disposition home or self-care (01) ==
PROVIDERS: PCP Internal Medicine; Referring Provider Internal Medicine; Visit Provider Internal Medicine
DX: I51.7 Cardiomegaly (principal); M41.80 Other forms of scoliosis, site unspecified
CPT/HCPCS: 71046